=== PATIENT | female | born 1990 | race Caucasian/White ===

== ENCOUNTER 2023-06-09 19:49 | Observation (INO) | payer OTHER, SELFPAY ==
[2023-06-09] VITALS (7 sets, daily range): BP systolic 85–91; BP diastolic 38–48; PULSE 86–102; RESP 17–28; TEMP 37.5–38.3; O2SAT 87–97
--- NOTE | 2023-06-09 19:54 | ECG_ITS ---
The [facility] Test Date: 2023-06-09 Pat Name: SALVADOR OWENS Department: Room: - Gender: Female Agile Qa Tester: : 1990 Requested By: Parth Blanco Order Number: [id number] Reading MD: DEVAN TONG Measurements Intervals [place] Rate: 95 P: 74 WI: 138 QRS: 88 QRSD: 80 T: 65 QT: 338 QTc: 390 Interpretive Statements 1100 Sinus rhythm 4068 Nonspecific Twave abnormality 9130 borderline ECG No previous ECG available for comparison Electronically Signed On 06-10-2023 7:38:06 EST by DEVAN TONG
--- NOTE | 2023-06-09 20:02 | XR_ITS ---
The [address] [address] Patient Name: SALVADOR OWENS MRN: [id number] date: 1990 Sex: F Assigned Patient Location: ER Current Patient Location: ER Accession/Order Number: [id number] Exam Date: 06/09/2023 21:02 Report Date: 06/09/2023 21:45 At the request of: WINSTON MARTINEZ Procedure: XR chest 1V CXR HISTORY: Shortness of breath. COMPARISON: None. TECHNIQUE: 1 view of the chest submitted for review. FINDINGS: Lines and tubes: None Lungs are hyperaerated. Airspace opacity in the left lung base. No effusion. The cardiac silhouette measures within normal. Pulmonary vascularity is unremarkable. Osseous structures are normal for age. XR/XR chest 1V IMPRESSION: Airspace opacity in the left lung base. Please correlate for pneumonia versus atelectasis. Electronically authenticated by: JUAN M CARDENAS Date: 06/09/2023 21:45
--- NOTE | 2023-06-09 20:16 | ED_ITS ---
HPI - General Adult General Chief complaint: Chest Pain Stated complaint: CP Time Seen by Provider: 06/09/23 19:54 Source: patient Mode of arrival: ambulance Limitations: no limitations History of Present Illness HPI narrative: I received a call from Renetta at [facility] about this patient prior to her arriving by EMS from their facility The patient been experiencing 3 to 4 days of cough and flulike symptoms with dif fuse muscle aches and fatigue as well as some nausea. Today she developed a fever and after getting 600 mg of ibuprofen around 6 PM had a Tmax of 102.6 around 7 PM. She also was apparently hypotensive and tachycardic at their facility. The patient was complaining of left anterior lower rib cage pain. Renetta, the nurse at [facility], told me that the physician on-call was concerned because the patient has history of seizure disorder and thought that the fever might precipitate seizure activity. The patient apparently was seen and evaluated at [facility] emergency department within the last 2 to 3 days. I do not have those records therefore I asked the emergency finishing department supervisor to call and have that information faxed to us for review The patient denied any flank pain or abdominal pain. No urinary symptoms. Left anterior lower chest/rib pain is worse with coughing and deep breaths. Related Data Previous Rx's Medication Instructions Recorded azithromycin 250 mg tablet 250 mg PO DAILY 4 days #4 tabs 06/09/23 methylprednisolone 4 mg tablets in 4 mg PO DAILY #21 ea 06/09/23 a dose pack (Medrol (Bernard)) nabumetone 750 mg tablet 750 mg PO BID PRN pleuritic pain 06/09/23 #14 tabs Allergies Allergy/AdvReac Type Severity Reaction Status Date / Time aspirin Allergy Mild Hives Verified 06/09/23 19:54 depakote Allergy Intermediate Confusion Uncoded 06/09/23 19:54 Exam Narrative Exam Narrative: Nurses notes and vital signs reviewed and patient is not hypoxic. FEBRILE T101F General: Well-appearing and in no apparent distress. Skin: Warm, dry, no pallor noted. No rash. Head: Normocephalic, atraumatic. Neck: Supple, non-tender. No cervical lymphadenopathy. Eye: Pupils are equal, round and EOMI. No scleral icterus. Ears, Nose, Mouth, and Throat: Oral mucosa is moist Cardiovascular: Tachycardia. Respiratory: No accessory muscle use or respiratory distress. Lungs are clear to auscultation, no wheezing, rales or rhonchi Chest wall: focal tenderness at the left lower anterior ribs at the mid clavicular line Back: No midline thoracic or lumbar vertebral tenderness. No CVA tenderness Musculoskeletal: normal ROM, no calf or popliteal tenderness, no lower extremity edema/swelling GI: Abdomen is soft, non-distended. Normal bowel sounds. No tenderness to palpation. No rebound, guarding, or rigidity noted. Neurological: A&O x4. No cranial nerve dysfunction observed. No truncal ataxia. Moves all extremities. Sensation intact. Psychiatric: Cooperative and interactive. Normal mood and affect. Constitutional Vital Signs, click to edit/add: Last Vital Signs Temp 99.5 F 06/09/23 21:35 Pulse 92 H 06/09/23 21:35 Resp 24 06/09/23 21:35 BP 90/48 L 06/09/23 21:35 Pulse Ox 94 L 06/09/23 21:35 O2 Del Method Room Air 06/09/23 21:35 Course Vital Signs Vital signs: Vital Signs Temperature 101.0 F H 06/09/23 19:54 Pulse Rate 102 H 06/09/23 19:54 Respiratory Rate 17 06/09/23 19:54 Blood Pressure 90/38 L 06/09/23 19:54 Pulse Oximetry 94 L 06/09/23 19:54 Oxygen Delivery Method Room Air 06/09/23 19:54 Temperature 99.5 F 06/09/23 21:35 Pulse Rate 92 H 06/09/23 21:35 Respiratory Rate 24 06/09/23 21:35 Blood Pressure 90/48 L 06/09/23 21:35 Pulse Oximetry 94 L 06/09/23 21:35 Oxygen Delivery Method Room Air 06/09/23 21:35 Medical Decision Making MDM Narrative Medical decision making narrative: Patient was placed on bellstaff and EKG obtained. Blood drawn and sent for evaluation, including lactate, procalcitonin, blood cultures per sepsis protocol. CXR obtained. The patient was given zofran, NS IVF and tylenol. WBC normal and lactate negative. procalcitonin elevated. blood cultures pending. she could not give us a urine sample. Swabs for influenza and Covid negative. Rad reading of CXR is questionable atelectasis vs infiltrate in LLL - due to patient's pleuritic pain will treat - she was started on azithromycin. Temp decreased to 99.5. BP still low at 90/48. Ordered patient to receive 2nd liter NS IVF. Her presentation is consistent with viral syndrome - cannot rule out LLL infiltrate. Chest pain consistent with pleurisy. Patient given IV Solumedrol. She will be discharged back to [facility] with prescriptions for Relafen and Medrol dose pack. Encouraged her to increase her oral fluid intake. ED return if she worsens. Medical Records Medical records reviewed: Yes I reviewed the patient's medical records Medical records narrative: I reviewed the patient's ED chart from [facility] for visit on 06/04/23. Patient presented with the same set of symptoms that she has today in our ED - but they attributed to possible alcohol-withdrawal related effects. She has chronic leukopenia and was found to once again have low WBC at 2k. EtoH positive at 0.05 despite denying alcoholic beverages for the last 2 days. EKG normal. BP normal in ED. UTox positive for THC and benzos. Testing for Covid, Influenza negative. CMP, troponin, mag, lactate negative. CXR negative. Dx'd with DEHYDRATION and DC'D back to [facility]. She had apparently been admitted 05/31/23 for etoh withdrawal treatment. Lab Data Lab results reviewed: Yes I reviewed the patient's lab results Labs: Lab Results 06/09/23 06/09/23 Range/Units 20:20 20:24 WBC 5.8 (4.0-11.0) 10^3/uL RBC 3.65 L (4.20-5.40) 10^6/uL Hgb 11.9 L (12.0-16.0) g/dL Hct 34.0 L (36.0-48.0) % MCV 93.2 (81.0-99.0) fL MCH 32.6 (26.7-34.0) pg MCHC 35.0 (29.9-35.2) g/dL RDW 11.6 (11.0-15.0) % Plt Count 144 L (150-450) 10^3/uL MPV 9.2 L (9.5-13.5) fL Neut % (Auto) 88.0 H (43.0-75.0) % Lymph % (Auto) 5.3 L (20.5-60.0) % [place] % (Auto) 6.2 (1.7-12.0) % Eos % (Auto) 0.0 L (0.9-7.0) % Baso % (Auto) 0.3 (0.2-2.0) % Neut # (Auto) 5.1 (1.4-6.5) 10^3/uL Lymph # (Auto) 0.3 L (1.2-3.8) 10^3/uL [place] # (Auto) 0.4 (0.3-0.8) 10^3/uL Eos # (Auto) 0.0 (0.0-0.7) 10^3/uL Baso # (Auto) 0.0 (0.0-0.1) 10^3/uL Abs Immat Gran (auto) 0.01 (0.00-0.03) 10^3/uL Imm/Tot Granulo (auto) 0.2 (0.0-0.5) % Sodium 140 (136-145) mmol/L Potassium 3.2 L (3.5-5.1) mmol/L Chloride 105 (98-107) mmol/L Carbon Dioxide 26.0 (21.0-32.0) mmol/L Anion Gap 12.2 BUN 10.0 (7.0-18.0) mg/dL Creatinine 1.07 H (0.55-1.02) mg/dL Est GFR ( Amer) >60 (>=60) Est GFR (Non-Af Amer) 59 L (>=60) BUN/Creatinine Ratio 9.3 Glucose 104 (74-106) mg/dL Lactate 1.5 (0.4-2.0) mmol/L Calcium 8.1 L (8.5-10.1) mg/dL Total Bilirubin 0.7 (0.2-1.0) mg/dL AST 12 L (15-37) U/L ALT 26 (14-59) U/L Alkaline Phosphatase 59 (46-116) U/L Total Protein 5.8 L (6.4-8.2) g/dL Albumin 3.1 L (3.4-5.0) g/dL Globulin 2.7 g/dL Albumin/Globulin Ratio 1.1 Procalcitonin 0.60 H (0.00-0.50) ng/mL Serum HCG, Qual Negative (NEGATIVE) Influenza Type A Ag Negative Influenza Type B Ag Negative SARS-CoV-2 Ag (CV2AG) Negative (NEGATIVE) Imaging Data Chest x-ray: Radiologist's impression: ITS Impressions Chest X-Ray 06/09/23 20:02 IMPRESSION: Airspace opacity in the left lung base. Please correlate for pneumonia versus atelectasis. Electronically authenticated by: JUAN M CARDENAS Date: 06/09/2023 21:45 ECG Data Attestation: I personally reviewed and interpreted this ECG as follows: Interpretation: EKG interpretation: Emergency Department physician interpretation. Normal sinus rhythm at 95bpm. Normal axis, normal intervals and no ST segment elevation or depression. Discharge Plan Discharge Chief Complaint: Chest Pain Clinical Impression: Pleurisy, Acute febrile illness Patient Disposition: Home, Self-Care Time of Disposition Decision: 21:50 Prescriptions / Home Meds: New nabumetone 750 mg tablet 750 mg PO BID PRN (Reason: pleuritic pain) Qty: 14 0RF methylprednisolone [Medrol (Bernard)] 4 mg tablets,dose pack 4 mg PO DAILY Qty: 21 0RF Rx Instructions: follow dose instructions on packaging azithromycin 250 mg tablet 250 mg PO DAILY 4 Days Qty: 4 0RF Rx Instructions: start on day 2 of therapy Instructions: Pleurisy (ED), Fever in Adults (ED) Stand Alone Forms: Portal Instructions Referrals: Physician,Non-Staff, MD [Primary Care Provider] - 1 week
[2023-06-09 20:38] LABS: Basophils Percent Auto 0.3 % (0.2-2.0); Hemoglobin 11.9 g/dL (12.0-16.0); Immature Granulocytes Abs Auto 0.01 10^3/uL (0.00-0.03); Immature Granulocytes Pct Auto 0.2 % (0.0-0.5); Lymphocytes Absolute Auto 0.3 10^3/uL (1.2-3.8); Lymphocytes Percent Auto 5.3 % (20.5-60.0); Mean Corpuscular Hemoglobin 32.6 pg (26.7-34.0); Mean Corpuscular Volume 93.2 fL (81.0-99.0); Mean Platelet Volume 9.2 fL (9.5-13.5); Monocytes Absolute Auto 0.4 10^3/uL (0.3-0.8); Monocytes Percent Auto 6.2 % (1.7-12.0); Neutrophils Absolute Auto 5.1 10^3/uL (1.4-6.5); Platelet Count 144 10^3/uL (150-450); Red Blood Count 3.65 10^6/uL (4.20-5.40); Red Cell Distribution Width 11.6 % (11.0-15.0); White Blood Count 5.8 10^3/uL (4.0-11.0)
[2023-06-09] MEDS: ONDANSETRON PF 4 MG/2 ML VIAL IV (20:40)
[2023-06-09] MEDS: 0.9 % SODIUM CHLORIDE 1,000 ML 1000 ML IV ×2 (20:40→22:14)
[2023-06-09] MEDS: ACETAMINOPHEN 500 MG TABLET 1000 MG PO (20:40)
[2023-06-09 20:57] LABS: HCG Qualitative NEGATIVE (NEGATIVE)
[2023-06-09 21:00] LABS: Influenza Virus A Antigen Negative; Influenza Virus B Antigen Negative; Internal Control Within Normal Limits; SARS-CoV-2 Ag NEGATIVE (NEGATIVE)
[2023-06-09 21:02] LABS: Lactate/Lactic Acid 1.5 mmol/L (0.4-2.0)
[2023-06-09 21:09] LABS: Alanine Aminotransferase 26 U/L (14-59); Albumin Globulin Ratio 1.1; Albumin Level 3.1 g/dL (3.4-5.0); Alkaline Phosphatase 59 U/L (46-116); Anion Gap 12.2; Aspartate Amino Transferase 12 U/L (15-37); BUN Creatinine Ratio 9.3; Bilirubin Total 0.7 mg/dL (0.2-1.0); Calcium 8.1 mg/dL (8.5-10.1); Chloride 105 mmol/L (98-107); Estimated GFR (African America >60 (>=60); Estimated GFR (Non-African Ame 59 (>=60); Globulin 2.7 g/dL; Glucose 104 mg/dL (74-106); Potassium 3.2 mmol/L (3.5-5.1); Sodium 140 mmol/L (136-145); Total Protein 5.8 g/dL (6.4-8.2)
[2023-06-09] MEDS: AZITHROMYCIN 250 MG TABLET 500 MG PO (22:14)
[2023-06-09] MEDS: METHYLPREDNISOLONE SOD SUCC PF 125 MG/2 ML VIAL IVP (22:15)
[2023-06-09 22:28] LABS: Bilirubin Urine NEGATIVE (NEGATIVE); Blood Urine NEGATIVE (NEGATIVE); Clarity Urine CLEAR (CLEAR); Color Urine YELLOW (YELLOW); Glucose Urine UA NEGATIVE (NEGATIVE); Ketones Urine NEGATIVE (NEGATIVE); Leukocyte Esterase Urine NEGATIVE (NEGATIVE); Nitrite Urine NEGATIVE (NEGATIVE); Protein Urine NEGATIVE (NEG/TRACE); Urobilinogen Urine 0.2 EU/dL (0.2-1.0)
[2023-06-09 22:36] LABS: Urine Microscopic Indicated NO
--- NOTE | 2023-06-09 23:26 | CT_ITS ---
[place] [id number] Patient Name: SALVADOR OWENS MRN: [id number] date: 1990 Sex: F Assigned Patient Location: ER Current Patient Location: Accession/Order Number: [id number] Exam Date: 06/09/2023 23:45 Report Date: 06/10/2023 01:30 At the request of: WINSTON MARTINEZ Procedure: CT angio chest EXAMINATION: CT angio chest HISTORY: hypoxia COMPARISON: Chest radiograph 06/09/2023 TECHNIQUE: CTA through the chest with intravenous contrast, coronal maximum intensity projection images, 3-dimensional dynamic images on separate workstation. Dose reduction techniques were achieved by using: automated exposure control and/or adjustment of mA and /or kV according to patient size and/or use of iterative reconstruction technique. FINDINGS: Heart is normal in size. No pathologic pericardial effusions. Thoracic aorta normal in size and contour. No mediastinal or hilar adenopathy. No evidence for pulmonary embolus. Central airways are patent. Dense airspace consolidation throughout the left lower lobe, with partial atelectasis. Linear atelectasis right lower lobe. No pneumothorax or pleural effusions. CT/CT angio chest IMPRESSION: 1. Negative for pulmonary embolus. 2. Dense airspace consolidation throughout the left lower lobe, compatible with predominantly pneumonia. Electronically authenticated by: DONAL MEJIA Date: 06/10/2023 01:30
--- NOTE | 2023-06-09 23:34 | PC.NURSE ---
[facility] informed that patient will be admitted.
[2023-06-09 23:55] LABS: ABG PCO2 39.6 mmHg (35.0-45.0); Allen Test POSITIVE (POSITIVE); Base Excess ABG -2.1 mmol/L (-2.0-2.0); HCO3 ABG 23.1 mmol/L (22.0-26.0); Oxygen Saturation ABG 93.8 %; PO2 ABG 65.6 mmHg (80.0-100.0); pH ABG 7.375 (7.350-7.450)
[2023-06-09 23:56] LABS: Liters per Minute 3; O2 Mode NASAL CANNULA; Puncture Site L RADIAL
[2023-06-10] VITALS (23 sets, daily range): BP systolic 93–106; BP diastolic 54–68; PULSE 61–89; RESP 16–22; TEMP 36.3–37.2; O2SAT 66–98; BMI 21.6
[2023-06-10] MEDS: CEFTRIAXONE 1,000 MG in 0.9 % SODIUM CHLORIDE 50 ML 100 MG IV ×2 (02:14→20:27)
[2023-06-10 03:40] LABS: Adenovirus NOT DETECTED (NOT DETECTE); Bordetella parapertussis NOT DETECTED (NOT DETECTE); Coronavirus 229E NOT DETECTED (NOT DETECTE); Coronavirus HKU1 NOT DETECTED (NOT DETECTE); Coronavirus NL63 NOT DETECTED (NOT DETECTE); Coronavirus OC43 NOT DETECTED (NOT DETECTE); Human Metapneumovirus NOT DETECTED (NOT DETECTE); Human Rhinovirus/Enterovirus NOT DETECTED (NOT DETECTE); Influenza A NOT DETECTED (NOT DETECTE); Mycoplasma pneumoniae NOT DETECTED (NOT DETECTE); Parainfluenza Virus 1 NOT DETECTED (NOT DETECTE); Parainfluenza Virus 2 NOT DETECTED (NOT DETECTE); Parainfluenza Virus 3 NOT DETECTED (NOT DETECTE); Parainfluenza Virus 4 NOT DETECTED (NOT DETECTE); Respiratory Syncytial Virus NOT DETECTED (NOT DETECTE); SARS-CoV-2 NOT DETECTED (NOT DETECTE)
[2023-06-10] MEDS: POTASSIUM CHLORIDE 10 MEQ ER TABLET 40 MEQ PO (03:41)
[2023-06-10 04:35] LABS: Influenza B DETECTED (NOT DETECTE)
[2023-06-10 04:38] LABS: PCO2 VBG 45.8 mmHg (40.0-52.0); pH VBG 7.338 (7.330-7.430)
[2023-06-10 04:40] LABS: Hematocrit 33.7 % (36.0-48.0); Hemoglobin 11.8 g/dL (12.0-16.0); Mean Corpuscular Hemoglobin 33.3 pg (26.7-34.0); Mean Corpuscular Volume 95.2 fL (81.0-99.0); Mean Platelet Volume 9.6 fL (9.5-13.5); Platelet Count 142 10^3/uL (150-450); Red Blood Count 3.54 10^6/uL (4.20-5.40); Red Cell Distribution Width 11.7 % (11.0-15.0); White Blood Count 9.3 10^3/uL (4.0-11.0)
[2023-06-10 04:56] LABS: Magnesium 1.6 mg/dL (1.8-2.4)
[2023-06-10 04:58] LABS: Alanine Aminotransferase 25 U/L (14-59); Albumin Level 2.9 g/dL (3.4-5.0); Alkaline Phosphatase 53 U/L (46-116); Anion Gap 14.1; Aspartate Amino Transferase 11 U/L (15-37); Bilirubin Total 0.4 mg/dL (0.2-1.0); Chloride 107 mmol/L (98-107); Estimated GFR (African America >60 (>=60); Estimated GFR (Non-African Ame >60 (>=60); Glucose 156 mg/dL (74-106); Potassium 4.1 mmol/L (3.5-5.1); Sodium 143 mmol/L (136-145); Total Protein 5.9 g/dL (6.4-8.2)
[2023-06-10 05:26] LABS: Lymphocytes Absolute Manual 0.09 10^3/uL (1.20-3.80); Monocytes Absolute Manual 0.18 10^3/uL (0.30-0.80); Segmented Neut Absolute Manual 7.06 10^3/uL (1.4-6.5)
[2023-06-10 05:27] LABS: Toxic Granulation 3+
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
[2023-06-10] MEDS: OSELTAMIVIR PHOSPHATE 75 MG CAPSULE PO ×2 (08:29→20:27)
--- NOTE | 2023-06-10 10:42 | RESP.RT ---
placed on room air
[2023-06-10] MEDS: ACETAMINOPHEN 325 MG TABLET 650 MG PO (16:47)
[2023-06-10] MEDS: AZITHROMYCIN 500 MG in 0.9 % SODIUM CHLORIDE 250 ML 250 MG IV (21:19)
[2023-06-11] VITALS (14 sets, daily range): BP systolic 95–106; BP diastolic 54–67; PULSE 61–87; RESP 16–18; TEMP 36.6–36.7; O2SAT 72–95
[2023-06-11 05:18] LABS: Basophils Percent Auto 0.2 % (0.2-2.0); Eosinophils Absolute Auto 0.1 10^3/uL (0.0-0.7); Eosinophils Percent Auto 0.7 % (0.9-7.0); Hematocrit 33.2 % (36.0-48.0); Hemoglobin 11.4 g/dL (12.0-16.0); Immature Granulocytes Abs Auto 0.06 10^3/uL (0.00-0.03); Immature Granulocytes Pct Auto 0.6 % (0.0-0.5); Lymphocytes Absolute Auto 1.2 10^3/uL (1.2-3.8); Lymphocytes Percent Auto 12.2 % (20.5-60.0); Mean Corpuscular HGB Conc 34.3 g/dL (29.9-35.2); Mean Corpuscular Hemoglobin 32.9 pg (26.7-34.0); Mean Corpuscular Volume 95.7 fL (81.0-99.0); Monocytes Absolute Auto 0.5 10^3/uL (0.3-0.8); Monocytes Percent Auto 4.8 % (1.7-12.0); Neutrophils Absolute Auto 8.2 10^3/uL (1.4-6.5); Neutrophils Percent Auto 81.5 % (43.0-75.0); Platelet Count 190 10^3/uL (150-450); Red Blood Count 3.47 10^6/uL (4.20-5.40); Red Cell Distribution Width 12.2 % (11.0-15.0); White Blood Count 10.1 10^3/uL (4.0-11.0)
[2023-06-11 05:56] LABS: Alanine Aminotransferase 20 U/L (14-59); Albumin Globulin Ratio 0.8; Albumin Level 2.6 g/dL (3.4-5.0); Alkaline Phosphatase 49 U/L (46-116); Aspartate Amino Transferase 8 U/L (15-37); BUN Creatinine Ratio 16.4; Bilirubin Total 0.2 mg/dL (0.2-1.0); Calcium 8.3 mg/dL (8.5-10.1); Carbon Dioxide 27.9 mmol/L (21.0-32.0); Chloride 109 mmol/L (98-107); Estimated GFR (African America >60 (>=60); Estimated GFR (Non-African Ame >60 (>=60); Globulin 3.3 g/dL; Glucose 79 mg/dL (74-106); Potassium 3.9 mmol/L (3.5-5.1); Sodium 144 mmol/L (136-145); Total Protein 5.9 g/dL (6.4-8.2)
--- NOTE | 2023-06-11 08:35 | P.DS_ITS ---
DS: Providers Provider Date of admission: 06/10/23 02:52 Primary care physician: Non-Staff Physician, Admitting clinician: Susana Pandey Attending physician on discharge: Susana Pandey DS: Diagnosis Discharge Diagnosis (1) Influenza: (2) LLL pneumonia: Qualifiers: Pneumonia type: due to unspecified organism Qualified Code(s): J18.9 - Pneumonia, unspecified organism (3) Pleurisy: (4) Alcoholism: DS: Summary Hospital Course Hospital Course: patient is a 32-year-old female who recently was admitted to [facility] for alcohol withdrawal. She is about six days and since her last drink and plans to complete a thirty day program there. During her to last six days she has developed a fever chills, and pain in her left lower ribs. She was seen at [place] [facility] emergency room and was sent back to [facility] three or four days ago. She also has become more short of breath and was sent to the Emergency Room here at the [facility]. She states that she has been having a lot of fatigue, cough muscle aches and pains. In the emergency room patient was found to test positive for influenza B. Chest x-ray also showed a left lower lobe pneumonia. Patient's oxygen saturations dropped to eighty percent and patient was placed on 3 L nasal cannula oxygen. But since she has recovered and is no longer requiring oxygen. She was placed on Tamiflu and Rocephin, azithromycin. She plans to return to [facility] today to complete her thirty day detox program. She will be discharged on Tamiflu and Augmentin. She is to return if any worsening symptoms occur and encouraged to wear a mask during group therapy. CIWA scores 0. Status at Discharge Functional status at discharge: independent ambulation Time Spent with Patient Time attestation: Total time spent providing and/or coordinating discharge services: Time spent: greater than 30 minutes Exam Narrative Exam Narrative: General: Patient is alert, and oriented to person, place and time with normal affect, proper hygiene Skin: no visible rashes, or ulcers Head: atraumatic, acephalic Eyes: PERRLA, no nystagmus present, conjunctiva clear, no scleral icterus Ears: normal gross auditory acuity Nose: symmetric, no discharge, no maxillary or frontal sinus tenderness Heart: Normal rate and rhythm, no murmurs/rubs/gallops Lungs: audible wheezes, crackles worse on the left than right lung Abdomen: Normal audible bowel sounds, no distension, No palpable masses, no organomegaly, no rebound/guarding/ or rigidity Musculoskeletal: no swelling bilateral lower extremities Neuro: CN II-X grossly intact Constitutional Vital Signs, click to edit/add: Last Vital Signs Temp 98.1 F 06/11/23 07:56 Pulse 69 06/11/23 08:00 Resp 16 06/11/23 07:56 BP 95/54 06/11/23 08:25 Pulse Ox 95 06/11/23 07:56 O2 Del Method Room Air 06/11/23 07:56 O2 Flow Rate 1 06/10/23 10:42 DS: Data Data Completed and Pending Labs on day of discharge: Labs from last 24 hours 06/11/23 03:57 WBC 10.1 RBC 3.47 L Hgb 11.4 L Hct 33.2 L MCV 95.7 MCH 32.9 MCHC 34.3 RDW 12.2 Plt Count 190 MPV 10.0 Neut % (Auto) 81.5 H Lymph % (Auto) 12.2 L [place] % (Auto) 4.8 Eos % (Auto) 0.7 L Baso % (Auto) 0.2 Neut # (Auto) 8.2 H Lymph # (Auto) 1.2 [place] # (Auto) 0.5 Eos # (Auto) 0.1 Baso # (Auto) 0.0 Abs Immat Gran (auto) 0.06 H Imm/Tot Granulo (auto) 0.6 H Sodium 144 Potassium 3.9 Chloride 109 H Carbon Dioxide 27.9 Anion Gap 11.0 BUN 11.0 Creatinine 0.67 Est GFR ( Amer) >60 Est GFR (Non-Af Amer) >60 BUN/Creatinine Ratio 16.4 Glucose 79 Calcium 8.3 L Total Bilirubin 0.2 AST 8 L ALT 20 Alkaline Phosphatase 49 Total Protein 5.9 L Albumin 2.6 L Globulin 3.3 Albumin/Globulin Ratio 0.8 Discharge Plan Discharge Disposition: Home, Self-Care Condition: Good Discharge Medications: New oseltamivir 75 mg Capsule 75 mg PO BID 3 Days Qty: 6 0RF Protocol: Tamiflu (1-12 yrs) Condition: Weight < 15kg Dose/Route: 30 mg Instruction: PO Condition: Weight 15-23 kg Dose/Route: 45 mg Instruction: PO Condition: Weight 24-40 kg Dose/Route: 60 mg Instruction: PO Condition: Weight > 41 kg Dose/Route: 75 mg Instruction: PO amoxicillin-pot clavulanate 875-125 mg tablet 1 tab PO BID 10 Days Qty: 20 0RF Activity: increase activity as tolerated Activity Detail: Use PEP therapy every hour while awake Diet: advance to your usual diet Patient Instructions: Amoxicillin (By mouth), Oseltamivir (By mouth), Pleurisy (DC), Influenza (DC), Pneumonia (DC) 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 Forms: Portal Instructions Follow Up Appointments: follow up appt with dr rodriguez on june 19, 2023 @ 0930 am, , [address] [facility] Discharge Date/Time: 06/11/23 14:41
[2023-06-11] MEDS: OSELTAMIVIR PHOSPHATE 75 MG CAPSULE PO (08:54)
[2023-06-11] MEDS: MULTIVITAMIN TABLET 1 TAB PO (08:55)
[2023-06-11] MEDS: THIAMINE MONONITRATE (VIT B1) 100 MG TABLET PO (08:55)
[2023-06-11] MEDS: MAGNESIUM SULFATE IN WATER 2 GM/50 ML PREMIX IV (09:01)
--- NOTE | 2023-06-11 09:41 | SWNOTE1 ---
Pt is from [facility] and will return to [facility]. SW called and they will transport, will just need SW to call back when she is ready. SW asked if they can assist with getting pt her antibiotic if she has scripts. She stated they can. They will either get from there pharmacy or take her to pick them up.
--- NOTE | 2023-06-11 10:53 | PC.NURSE ---
report called to nitin at [facility]. jory agrees to pick patient up at two pm.
--- NOTE | 2023-06-11 11:43 | CM.NOTE ---
Rounds made with Dr. Pandey, pt will discharge back to [facility] today to complete Rehab. [facility] will pick pt up when discharge is complete. No discharge needs identified.
== END 2023-06-11 14:41 | disposition home or self-care (01) ==
LOC: ER 22:35 → MS 06-10 02:57
PROVIDERS: Internal Medicine; Registered Nurse; Admitting Provider Family Medicine; Emergency Provider Emergency Medicine; Visit Provider Family Medicine
DX: J10.00 Influenza due to other identified influenza virus with unspecified type of pneumonia (principal); R09.1 Pleurisy; F10.20 Alcohol dependence, uncomplicated; F17.210 Nicotine dependence, cigarettes, uncomplicated; R09.02 Hypoxemia; R50.9 Fever, unspecified; I10 Essential (primary) hypertension; F32.A Depression, unspecified; F43.10 Post-traumatic stress disorder, unspecified; F14.90 Cocaine use, unspecified, uncomplicated; Z20.822 Contact with and (suspected) exposure to COVID-19; F15.90 Other stimulant use, unspecified, uncomplicated; F11.90 Opioid use, unspecified, uncomplicated; F19.90 Other psychoactive substance use, unspecified, uncomplicated
CPT/HCPCS: 0202U; 36415; 36600; 71045; 71275; 80053; 81003; 82800; 82805; 83605; 83735; 84145; 84703; 85007; 85025; 85027; 87040; 87804; 87811; 93005; 94667; 94761; 96365; 96366; 96367; 96375; 99285; G0378; J0456; J2930; Q9967